=== PATIENT | female | born 1990 | race Caucasian/White ===

== ENCOUNTER 2017-11-02 10:58 | Emergency (ER) | payer OTHER | END 2017-11-02 12:03 | disposition left against medical advice (07) | LOC: ED 10:58 | DX: Z53.21 Procedure and treatment not carried out due to patient leaving prior to being seen by health care provider (principal) ==

== ENCOUNTER 2018-12-13 18:59 | Emergency (ER) | payer OTHER ==
[~2018-12-13] VITALS: Ht 152.4 cm; Wt 56.2 kg
[2018-12-13 19:17] VITALS: Ht 152.4 cm; Wt 56.2 kg
[2018-12-13 20:39] VITALS: BP 138/76
== END 2018-12-13 20:39 | disposition home or self-care (01) ==
LOC: ED 18:59
DX: R05 Cough (principal); J02.9 Acute pharyngitis, unspecified; H92.03 Otalgia, bilateral

== ENCOUNTER 2019-06-01 17:04 | Emergency (ER) | payer OTHER ==
[~2019-06-01] VITALS: Ht 152.4 cm; Wt 57.6 kg
[2019-06-01 17:12] VITALS: Ht 152.4 cm; Wt 57.6 kg
[2019-06-01 17:55] LABS: PLATELET COUNT 258 x10^3mcL (130-400); RED CELL DISTRIBUTION WIDTH 12.6 % (11.5-14.5)
[2019-06-01 17:56] LABS: BASOPHIL % 0 % (0-2)
[2019-06-01 18:03] LABS: CARBON DIOXIDE 26.2 mmol/L (21-32); CHLORIDE SERUM 102 mmol/L (98-107); CREATININE SERUM 0.6 mg/dL (0.6-1.0); GFR1 > 60 mL/min; GLUCOSE SERUM 81 mg/dL (74-106); POTASSIUM SERUM 4.1 mmol/L (3.5-5.1); SODIUM SERUM 139 mmol/L (136-145)
[2019-06-01 18:08] LABS: ALBUMIN 4.2 g/dL (3.4-5.0); ALKALINE PHOSPHATASE 73 U/L (46-116); ALT/SGPT 49 U/L (14-59); AST/SGOT 30 U/L (15-37); BILIRUBIN TOTAL 0.3 mg/dL (0.20-1.00); LIPASE 158 IU/L (73-393)
[2019-06-01 18:09] LABS: TOTAL PROTEIN, SERUM 8.8 g/dL (6.4-8.2)
[2019-06-01 18:55] VITALS: BP 117/73
== END 2019-06-01 18:55 | disposition home or self-care (01) ==
LOC: ED 17:04
DX: A08.4 Viral intestinal infection, unspecified (principal)
CPT/HCPCS: 36415; J1885; Q0162

== ENCOUNTER 2019-06-04 22:20 | Emergency (ER) | payer OTHER ==
[~2019-06-04] VITALS: Ht 152.4 cm; Wt 55.8 kg
[2019-06-04 22:26] VITALS: BP 121/81; Ht 152.4 cm; Wt 55.8 kg
== END 2019-06-04 23:22 | disposition home or self-care (01) ==
LOC: ED 22:20
DX: R11.2 Nausea with vomiting, unspecified (principal); R19.7 Diarrhea, unspecified; R10.822 Left upper quadrant rebound abdominal tenderness; R10.816 Epigastric abdominal tenderness